=== PATIENT | female | born 1965 | race Two or more races ===

== ENCOUNTER 2021-06-30 08:30 | Inpatient (IN) | payer OTHER ==
[~2021-06-30] VITALS: Ht 165.1 cm; Wt 53.5 kg
[2021-06-30] MEDS ORDERED: DEXILANT60 MG PO (10:55)
[2021-06-30] MEDS ORDERED: SYNTHROID88 MCG PO (10:55)
[2021-06-30] MEDS ORDERED: DICY20TA PO (10:55)
[2021-06-30] MEDS ORDERED: COZAAR100 MG PO (10:55)
[2021-06-30] MEDS ORDERED: LEXAPRO5 MG PO (10:56)
[2021-06-30] MEDS ORDERED: SINGULAIR10 MG PO (10:56)
[2021-06-30] MEDS ORDERED: SYMBICORT 16010.2 GM IH (10:57)
[2021-06-30] MEDS ORDERED: PEPCID40 MG PO (10:57)
[2021-06-30] MEDS ORDERED: RESTORIL30 M1 PO (10:57)
[2021-06-30] MEDS ORDERED: PREMPRO 0.625-1 EAC1 PO (10:58)
== END 2021-07-04 13:39 | disposition home or self-care (01) | DRG 331 ==
LOC: ADM 08:30 → EDSTATUS 08:30 → O/R 07-02 05:58 → SURG 07-02 05:58 → SURH 07-02 07:00 → SURG 07-02 16:44
PROVIDERS: ADMIT Colon & Rectal Surgery; ATTEND Colon & Rectal Surgery
PROC: 0DQP4ZZ Repair Rectum, Percutaneous Endoscopic Approach (ICD-10-PCS; principal; 2021-07-02 07:00)
DX: K62.3 Rectal prolapse (principal); R15.9 Full incontinence of feces; I10 Essential (primary) hypertension; E03.8 Other specified hypothyroidism

== ENCOUNTER 2022-08-16 08:45 | Inpatient (IN) | payer OTHER ==
[~2022-08-16] VITALS: Ht 162.6 cm; Wt 52.2 kg
[~2022-08-16 08:45] MED LIST: COZAAR100 MG PO; DEXILANT60 MG PO; DICY20TA PO; LEXAPRO5 MG PO; PEPCID40 MG PO; PREMPRO 0.625-1 EAC1 PO; RESTORIL30 M1 PO; SINGULAIR10 MG PO; SYMBICORT 16010.2 GM IH; SYNTHROID88 MCG PO
[2022-08-19] MEDS ORDERED: TRAM1TAB98 PO (08:28)
[2022-08-19] MEDS ORDERED: INTESTINEX680 M1 PO (08:29)
== END 2022-08-19 13:33 | disposition home or self-care (01) | DRG 331 ==
LOC: O/R 08-18 06:01 → SURH 08-18 06:01
PROVIDERS: ADMIT Surgery; ATTEND Surgery
PROC: 0DQP4ZZ Repair Rectum, Percutaneous Endoscopic Approach (ICD-10-PCS; principal; 2022-08-18 14:00)
DX: K62.3 Rectal prolapse (principal); Z20.822 Contact with and (suspected) exposure to COVID-19; K58.0 Irritable bowel syndrome with diarrhea